=== PATIENT | female | born 1990 | race Two or more races ===

== ENCOUNTER 2024-09-23 08:06 | Outpatient (AMB) | payer OTHER, SELFPAY ==
--- OUTSIDE RECORDS SUMMARY | 2024-09-23 08:15 | XMS_ITS | Data Portability ---
Author Organization [facility], [address] Address [address] [place] [address] Assessment No assessment recorded. Plan of Treatment Reminders Order Date Submit Date Provider Last Modified By Organization Details Last Modified Time Details Appointments None recorded. Lab SARS CoV 2 (COVID-19) Ag, QL, IA, upper respiratory specimen 2022 023 [facility], [address] [place], [address], 3 09:34:08 urinalysis, dipstick 2022 023 [email or web address] [facility], [address] [place], [address], 3 11:21:40 Referral emergency medicine referral 2022 023 delia alarcon [facility] Emergency [facility], [address] [place], [address], 3 11:24:42 Procedures None recorded. Surgeries None recorded. Imaging None recorded. Medication Orders ondansetron 8 mg disintegrat ing tablet 2023 024 [id number], [address], [place], [id number], 4 11:09:52 Allergy Relief (fluticason e) 50 mcg/actuati on nasal spray,suspe nsion 2023 024 [id number], [address], [place], [id number], 4 11:09:51 prednisone 20 mg tablet 2023 024 [facility]85118, [address], [place], [id number], 4 11:09:54 Allergy Relief (fluticason e) 50 mcg/actuati on nasal spray,suspe nsion 2022 023 [facility][id number], [address], [place], [id number], 3 09:34:13 benzonatate 200 mg capsule 2022 024 [facility] #[id number], [address], [place], [id number], 4 10:51:22 Lice Treatment (permethrin ) 1 % topical liquid 2022 023 [facility] #[id number], [address], [place], [id number], 3 10:44:14 Patient TargetsNo targets recorded. Patient Instructions Encounter Date Encounter Id Patient Instructions Last Modified By Organization Details Last Modified Time 10/28/2022 [id number] how to disinfect your house due to head lice [email or web address] Not available 10/28/2022 16:44:14 04/16/2023 [id number] cough: care instructions Not available 04/16/2023 09:34:05 Sinusitis is an infection of the lining of the sinus cavities in your head. Sinusitis often follows a cold. It causes pain and pressure in your head and face. In most cases, sinusitis gets better on its own in 1 to 2 weeks. But some mild symptoms may last for several weeks. Sometimes antibiotics are needed. if you are having problems. It's also a good idea to know your test results and keep a list of the medicines you take. How can you care for yourself at home? Take an wyrc-vkp-dnjxhyd pain medicine. Avoid Ibuprofen, Aleve and Aspirin if . If the doctor prescribed antibiotics, take them as directed. Do not stop taking them just because you feel better. You need to take the full course of antibiotics. Be careful when taking iweg-pec-mgsgmlf cold or influenza (flu) medicines and Tylenol at the same time. Many of these medicines have acetaminophen, which is Tylenol. Read the labels to make sure that you are not taking more than the recommended dose. Too much acetaminophen (Tylenol) can be harmful. Breathe warm, moist air from a steamy shower, a hot bath, or a sink filled with hot water. Avoid cold, dry air. Using a humidifier in your home may help. Follow the directions for cleaning the machine. Use saline (saltwater) nasal washes. This can help keep your nasal passages open and wash out mucus and bacteria. You can buy saline nose drops at a grocery store or drugstore. Or you can make your own at home by adding 1 teaspoon (5 millilitres) of salt and 1 teaspoon (5 millilitres) of baking soda to 2 cups (500 mL) of distilled water. If you make your own, fill a bulb syringe with the solution, insert the tip into your nostril, and squeeze gently. Blow your nose. Put a hot, wet towel or a warm gel pack on your face 3 or 4 times a day for 5 to 10 minutes each time. Try a decongestant nasal spray like oxymetazoline (Drixoral). Do not use it for more than 3 days in a row. Using it for more than 3 days can make your congestion worse. Not available 04/16/2023 09:32:50 If you test positive for COVID-19, stay home for at least 5 days and isolate from others in your home. You are likely most infectious during these first 5 days. Wear a high-quality mask if you must be around others at home and in public. Do not go places where you are unable to wear a mask. For travel guidance, see [facility]? s Travel webpage. Do not travel. Stay home and separate from others as much as possible. Use a separate bathroom, if possible. Take steps to improve ventilation at home, if possible. Don? t share personal household items, like cups, towels, and utensils. Monitor your symptoms. If you have an emergency warning sign (like trouble breathing), seek emergency medical care immediately. If you had symptoms and: Your symptoms are improving You may end isolation after day 5 if: You are fever-free for 24 hours (without the use of fever-reducing medication). Your symptoms are not improving Continue to isolate until: You are fever-free for 24 hours (without the use of fever-reducing medication). Your symptoms are improving. Regardless of when you end isolation Until at least day 11: Avoid being around people who are more likely to get very sick from COVID-19. Remember to wear a high-quality mask when indoors around others at home and in public. Do not go places where you are unable to wear a mask until you are able to discontinue masking (see below). For travel guidance, see [facility]? s Travel webpage. Not available 04/16/2023 09:17:22 06/28/2023 [id number] headache: care instructions Not available 06/28/2023 11:09:45 tension headache : care instructions Not available 06/28/2023 11:09:45 Sinusitis is an infection of the lining of the sinus cavities in your head. Sinusitis often follows a cold. It causes pain and pressure in your head and face. In most cases, sinusitis gets better on its own in 1 to 2 weeks. But some mild symptoms may last for several weeks. Sometimes antibiotics are needed. if you are having problems. It's also a good idea to know your test results and keep a list of the medicines you take. How can you care for yourself at home? Take an axdp-jqa-lsbuxml pain medicine. Avoid Ibuprofen, Aleve and Aspirin if . If the doctor prescribed antibiotics, take them as directed. Do not stop taking them just because you feel better. You need to take the full course of antibiotics. Be careful when taking bwwf-wkh-oqqdpdf cold or influenza (flu) medicines and Tylenol at the same time. Many of these medicines have acetaminophen, which is Tylenol. Read the labels to make sure that you are not taking more than the recommended dose. Too much acetaminophen (Tylenol) can be harmful. Breathe warm, moist air from a steamy shower, a hot bath, or a sink filled with hot water. Avoid cold, dry air. Using a humidifier in your home may help. Follow the directions for cleaning the machine. Use saline (saltwater) nasal washes. This can help keep your nasal passages open and wash out mucus and bacteria. You can buy saline nose drops at a grocery store or drugstore. Or you can make your own at home by adding 1 teaspoon (5 millilitres) of salt and 1 teaspoon (5 millilitres) of baking soda to 2 cups (500 mL) of distilled water. If you make your own, fill a bulb syringe with the solution, insert the tip into your nostril, and squeeze gently. Blow your nose. Put a hot, wet towel or a warm gel pack on your face 3 or 4 times a day for 5 to 10 minutes each time. Try a decongestant nasal spray like oxymetazoline (Drixoral). Do not use it for more than 3 days in a row. Using it for more than 3 days can make your congestion worse. Not available 06/28/2023 11:09:42 Reason for Referral Emergency Medicine Referral for Abdominal pain Abdominal Pain x 4 days with nausea vomiting and dizziness Referring Physician: Wesly Glover, Urgent Care, Encounter Date: 11/06/2022 Results Created Date Observation Date Name Description Value Unit Range Abnormal Flag Note LastModifiedBy Organization Detail LastModifiedTime 11/07/1911/06/2022 urina lysis , dipst ick Unknown Analyte Normal = light yellow Not Available [facility] [address] [place], [address], 11/06/2022 11:01:57 11/07/1911/06/2022 urina lysis , dipst ick Unknown Analyte Yellow Not Available [facility] [address] [place], [address], 11/06/2022 11:01:57 11/07/1911/06/2022 urina lysis , dipst ick Unknown Analyte Normal = clear Not Available [facility] [address] [place], [address], 11/06/2022 11:01:57 11/07/19 23 11/06/2022 urina lysis , dipst ick Unknown Analyte Clear Not Available [id number] [place] [address] [address] [place], [address], 11/06/2022 11:01:57 11/07/19 23 11/06/2022 urina lysis , dipst ick Unknown Analyte Normal = negati ve Not Available [facility] [address] [place], [address], 11/06/2022 11:01:57 11/07/19 23 11/06/2022 urina lysis , dipst ick Unknown Analyte Negati ve Not Available [facility] [address] [place], [address], 11/06/2022 11:01:57 11/07/1911/06/2022 urina lysis , dipst ick Unknown Analyte Normal = Negati ve Not Available [facility] [address] [place], [address], 11/06/2022 11:01:57 11/07/19 23 11/06/2022 urina lysis , dipst ick Unknown Analyte Small Not Available [id number] [place] [address] [address] [place], [address], 11/06/2022 11:01:57 11/07/19 23 11/06/2022 urina lysis , dipst ick Unknown Analyte Normal = Negati ve Not Available [address] [address] [place], [address], 11/06/2022 11:01:57 11/07/19 23 11/06/2022 urina lysis , dipst ick Unknown Analyte Trace Not Available [id number] [place] [address] [address] [place], [address], 11/06/2022 11:01:57 11/07/19 23 11/06/2022 urina lysis , dipst ick Unknown Analyte Normal = 1.010, 1.015, 1.020 Not Available [address] [place], [address], 11/06/2022 11:01:57 11/07/1911/06/2022 urina lysis , dipst ick Unknown Analyte 1.015 Not Available [id number] [place] [address] [address] [place], [address], 11/06/2022 11:01:57 11/07/1911/06/2022 urina lysis , dipst ick Unknown Analyte Normal = Negati ve Not Available [facility] [address] [place], [address], 11/06/2022 11:01:57 11/07/19 23 11/06/2022 urina lysis , dipst ick Unknown Analyte Negati ve Not Available [address] [place], [address], 11/06/2022 11:01:57 11/07/1911/06/2022 urina lysis , dipst ick Unknown Analyte Normal = 6.5, 7.0, 7.5, 8.0 Not Available [address] [place], [address], 11/06/2022 11:01:57 11/07/19 23 11/06/2022 urina lysis , dipst ick Unknown Analyte 8.5 Not Available [address] [address] [place], [address], 11/06/2022 11:01:57 11/07/1911/06/2022 urina lysis , dipst ick Unknown Analyte Normal = Negati ve Not Available [address] [address] [place], [address], 11/06/2022 11:01:57 11/07/19 23 11/06/2022 urina lysis , dipst ick Unknown Analyte 100 mg/dL Not Available [facility] [address] [place], [address], 11/06/2022 11:01:57 11/07/1911/06/2022 urina lysis , dipst ick Unknown Analyte Normal = 0.2, 1.0 Not Available [facility] [address] [place], [address], 11/06/2022 11:01:57 11/07/1911/06/2022 urina lysis , dipst ick Unknown Analyte 4.0 E.U./d L Not Available [facility] [address] [place], [address], 11/06/2022 11:01:57 11/07/1911/06/2022 urina lysis , dipst ick Unknown Analyte Normal = Negati ve Not Available [facility] [facility] [address] [place], [address], 11/06/2022 11:01:57 11/07/1911/06/2022 urina lysis , dipst ick Unknown Analyte Negati ve Not Available [facility] [facility] [address] [place], [address], 11/06/2022 11:01:57 0611/06/2022 urina lysis , dipst ick Unknown Analyte Normal = Negati ve Not Available [address] [address] [place], [address], 11/06/2022 11:01:57 11/07/19 23 11/06/2022 urina lysis , dipst ick Unknown Analyte Trace Not Available _ [facility] [address] [place], [address], 11/06/2022 11:01:57 04/16/20 23 04/16/2023 SARS CoV 2 (COVI D-19) Ag, QL, IA, upper respi rator y speci men Unknown Analyte negati ve Not Available [address] [address] [place], [address], 04/16/2023 09:03:17 Result Notes None recorded. Problems Name Problem SNOMED Code Status Onset Date Resolution Date Notes Provider Name and Address Organization Details Recorded Time Depressive disorder 70470267 Active 2022 ELVIRA DEPINTO null, [place] - [facility] 3 15:57:11 Anxiety 50184182 Active 2022 ELVIRA DEPINTO null, PA - [facility] 3 15:57:15 Neoplasm of meninges 569352117 Active 2022 being seen for tumor ELVIRA DEPINTO null, PA - [facility] 3 15:58:09 Migraine 12805263 Active EMILY MINEO null, PA - [facility] 3 08:45:32 Asthma 714820589 Active EMILY MINEO null, PA - [facility] 3 08:46:50 History of meningioma [id number] 01 Active EMILY MINEO null, PA - [facility] 3 08:47:31 Notes:meningioma Problem Notes None recorded. Procedures Surgical History Date Name Laterality Status Provider Name and Address Organization Details Recorded Time laparoscopic sleeve gastrectomy completed MILLER WRIGHT [place] - [facility] 11/06/2022 10:47:36 ligation of fallopian tube completed MILLER MALIN ADRIANA [facility] 11/06/2022 10:48:53 Imaging Results None recorded. Procedure Notes None recorded. Medical Equipment None Reported. Allergies Allergen ID Allergen Name Allergen Category Reaction Reaction Severity Criticality Documentation Date Start Date Code Code System Note Provider Name and Address Organization Details Recorded [facility] Not available Not available 11/06/2022 54372 4 RxNorm MILLER jalloh [facility] 10:42:34 Medications Name Sig Start Date Stop Date Status Note LastModified by Organization Details LastModified Time d3-1000 25 mcg (1000 ut) tabs active Not Available Not Available Not Available vitamin d-1000 maximum strength 25 mcg (1000 ut) tabs active Not Available Not Available Not Available amoxicillin 500 mg capsule TAKE 1 CAPSULE BY MOUTH 3 (THREE) TIMES A DAY FOR 7 DAYS 06/28 completed Not Available Not Available Not Available azelastine 0.05 % eye drops INSTILL 1 DROP IN EACH EYE two (2) times a day NEEDED FOR ALLERGY active Not Available Not Available No t Available nabumetone 750 mg tablet TAKE 2 TABLETS BY MOUTH ONCE DAILY. TAKE WITH A MEAL active Not Available Not Available No t Available tizanidine 2 mg tablet TAKE 1 TABLET BY MOUTH 3 (THREE) TIMES A DAY active Not Available Not Available No t Available loperamide 2 mg capsule TAKE TWO CAPSULES BY MOUTH THE first TIME; THEN TAKE 1 CAPSULE BY MOUTH AFTER EACH loose stool. not to exceed 8 CAPSULES, OR 16mg, IN 24 HOURS active Not Available Not Available No t Available cetirizine 10 mg tablet TAKE 1 TABLET BY MOUTH ONCE DAILY NEEDED FOR ALLERGY active Not Available Not Available No t Available tizanidine 4 mg tablet TAKE 1 TABLET BY MOUTH 3 (THREE) TIMES A DAY NEEDED active Not Available Not Available No t Available benzonatate 200 mg capsule Take 1 capsule 3 times a day by oral route as needed for 7 days. 06/28 completed Not Available Not Available Not Available sucralfate 1 gram tablet TAKE 1 TABLET BY MOUTH two (2) times a day NEEDED FOR upset stomach active Not Available Not Available No t Available ondansetron HCl 4 mg tablet TAKE 1 TABLET BY MOUTH EVERY 8 HOURS NEEDED FOR VOMITING active Not Available Not Available No t Available prednisone 20 mg tablet TAKE 2 TABLETS BY MOUTH EVERY DAY IN THE MORNING FOR 3 DAYS active Not Available Not Available No t Available topiramate 25 mg tablet TAKE 1 TABLET BY MOUTH AT BEDTIME FOR 7 DAYS; 1 TAB two (2) times a day FOR 7 DAYS; 1 TAB IN THE MORNING AND 2 TABLETS AT BEDTIME FOR 7 DAYS; 2 TABLETS two (2) times a day FOR 7 DAYS; 2 TABLETS IN THE MORNING AND 3 TABLETS AT BEDTIME FOR 7 DAYS; 3 TABLETS two (2) times a day FOR 7 DAYS; 3 TABLETS IN THE MORNING AND 4 TABLETS AT BEDTIME FOR 7 DAYS; THEN 4 TABLETS two (2) times a day 06/28 completed Not Available Not Available Not Available acetaminoph en 300 mg-codeine 15 mg tablet TAKE 1 TABLET BY MOUTH EVERY 6 HOURS NEEDED FOR PAIN chest AND FOR COUGH active Not Available Not Available No t Available Sudogest 30 mg tablet TAKE 2 TABLETS BY MOUTH EVERY 6 HOURS active Not Available Not Available No t Available ondansetron 8 mg disintegrat ing tablet DISSOLVE 1 TABLET ON THE TONGUE TWICE DAILY FOR 3 DAYS NEEDED active Not Available Not Available No t Available zolmitripta n 2.5 mg tablet TAKE 1 TABLET BY MOUTH ONCE NEEDED for migraine. MAY REPEAT ONCE EVERY 2 HOUR NEEDED . not to exceed 4 TABLETS ONCE DAILY active Not Available Not Available No t Available tolterodine 2 mg tablet TAKE 1 TABLET BY MOUTH two (2) times a day NEEDED FOR incontine nce active Not Available Not Available No t Available magnesium oxide 400 mg (241.3 mg magnesium) tablet TAKE 1 TABLET BY MOUTH ONCE DAILY active Not Available Not Available No t Available dexamethaso ne 1 mg tablet TAKE 1 TABLET BY MOUTH ONCE. TAKE AFTER 11pm DAY BEFORE lab study active Not Available Not Available No t Available Proctozone- HC 2.5 % topical cream perineal applicator APPLY RECTALLY two (2) times a day active Not Available Not Available No t Available pantoprazol e 40 mg tablet,keith yed release TAKE 1 TABLET BY MOUTH ONCE DAILY 30 MINUTES BEFORE BREAKFAST active Not Available Not Available No t Available diphenhydra mine 25 mg capsule TAKE 1 TO 2 CAPSULES BY MOUTH EVERY 6 HOURS NEEDED FOR ALLERGY rash symptoms active Not Available Not Available No t Available nitrofurant oin macrocrysta l 100 mg capsule TAKE 1 CAPSULE BY MOUTH TWICE DAILY FOR 5 DAYS 06/28 completed Not Available Not Available Not Available diclofenac sodium 75 mg tablet,keith yed release TAKE 1 TABLET BY MOUTH 3 (THREE) TIMES A DAY NEEDED FOR PAIN BACK. TAKE WITH A MEAL active Not Available Not Available No t Available zolpidem 5 mg tablet TAKE 1 TABLET BY MOUTH ON THE NIGHT OF SLEEP study AFTER arrival TO SLEEP lab. Arrange FOR ride HOME NEXT MORNING 11/06 completed Not Available Not Available Not Available gabapentin 100 mg capsule TAKE TWO CAPSULES BY MOUTH ONCE DAILY AT BEDTIME FOR neurvo dolor active Not Available Not Available No t Available polyethylen e glycol 3350 17 gram/dose oral powder DISSOLVE 17gm IN WATER OR juice AND DRINK ONCE DAILY NEEDED FOR CONSTIPAT ION 11/06 completed Not Available Not Available Not Available methylpredn isolone 4 mg tablets in a dose pack TAKE DIRECTED per package labeling 11/06 completed Not Available Not Available Not Available paroxetine 40 mg tablet TAKE 1 TABLET BY MOUTH ONCE DAILY active Not Available Not Available No t Available ondansetron 4 mg disintegrat ing tablet PLACE 1 TABLETS UNDER THE TONGUE TO DISSOLVE 3 (THREE) TIMES A DAY FOR NAUSEA active Not Available Not Available No t Available loratadine 10 mg tablet TAKE 1 TABLET BY MOUTH ONCE DAILY NEEDED FOR ALLERGY active Not Available Not Available No t Available amoxicillin 875 mg-potassiu m clavulanate 125 mg tablet TAKE 1 TABLET BY MOUTH EVERY TWELVE HOURS FOR 10 DAYS 11/06 completed Not Available Not Available Not Available nabumetone 500 mg tablet TAKE 1 TABLET BY MOUTH two (2) times a day NEEDED FOR PAIN. TAKE WITH A MEAL active Not Available Not Available No t Available Ventolin HFA 90 mcg/actuati on aerosol inhaler INHALE 2 PUFF BY MOUTH EVERY 6 HOURS NEEDED FOR SHORTNESS OF BREATH OR FOR WHEEZING active Not Available Not Available No t Available verapamil ER 120 mg 24 hr capsule,ext ended release TAKE 1 CAPSULE BY MOUTH ONCE DAILY 11/06 completed Not Available Not Available Not Available buspirone 15 mg tablet TAKE 1/2 TO 1 TABLETS BY MOUTH two (2) times a day NEEDED ANXIETY active Not Available Not Available No t Available escitalopra m 10 mg tablet TAKE 1 TABLET BY MOUTH ONCE DAILY active Not Available Not Available No t Available escitalopra m 5 mg tablet Take 1/2 tablet by mouth daily for 7 days, THEN TAKE 1 TABLET ONCE DAILY active Not Available Not Available No t Available topiramate 50 mg tablet TAKE 1 TABLET BY MOUTH two (2) times a day active Not Available Not Available No t Available gabapentin active Not Available Not Av ailable Not Available cholecalcif howie (vitamin D3) 25 mcg (1,000 unit) tablet TAKE 1 TABLET BY MOUTH ONCE DAILY active Not Available Not Available No t Available Myrbetriq 50 mg tablet,exte nded release TAKE 1 TABLET BY MOUTH ONCE DAILY active Not Available Not Available No t Available Ferate 240 mg (27 mg iron) tablet TAKE 1 TABLET BY MOUTH ONCE DAILY WITH JUICE active Not Available Not Available No t Available Allergy Relief (fluticason e) 50 mcg/actuati on nasal spray,suspe nsion Vina 1 spray every day by intranasa l route as directed for 90 days. 2023 active Not Available Not Available Not Avai lable Vitals Date Recorded Oxygen saturation Oxygen saturation in Arterial blood by Pulse oximetry Pain severity - 0-10 verbal numeric rating [Score] - Reported Heart rate Respiratory rate Body temperature Systolic blood pressure Diastolic blood pressure Provider Name and Address Organization Details Last Updated DateTime 3 98 % 98 % 0 66 /min 18 /min 98 [degF] 116 mm[Hg] 68 mm[Hg] ELVIRA BOSTON [place] - [facility] 3 15:56:33 Date Recorded Body height Body mass index (BMI) Body weight Oxygen saturation Oxygen saturation in Arterial blood by Pulse oximetry Heart rate Respiratory rate Body temperature Systolic blood pressure Diastolic blood pressure Provider Name and Address Organization Details Last Updated DateTime 3 162.56 cm 45.1 kg/m2 215075. 79 g 100 % 100 % 70 /min 20 /min 97.9 [degF] 110 mm[Hg] 73 mm[Hg] MILLER WRIGHT [facility] 3 10:50:34 Date Recorded Body height Body mass index (BMI) Body weight Oxygen saturation Oxygen saturation in Arterial blood by Pulse oximetry Heart rate Respiratory rate Body temperature Systolic blood pressure Diastolic blood pressure Provider Name and Address Organization Details Last Updated DateTime 3 162.56 cm 43.8 kg/m2 291419. 05 g 98 % 98 % 83 /min 18 /min 98.9 [degF] 112 mm[Hg] 60 mm[Hg] EMILY HUSAINWendy PA - [facility] 3 08:50:13 Date Recorded Body height Body mass index (BMI) Body weight Body temperature Oxygen saturation Oxygen saturation in Arterial blood by Pulse oximetry Heart rate Respiratory rate Systolic blood pressure Diastolic blood pressure Provider Name and Address Organization Details Last Updated DateTime 4 162.56 cm 45.7 kg/m2 709409. 57 g 98.4 [degF] 98 % 98 % 83 /min 18 /min 121 mm[Hg] 84 mm[Hg] Richa Cyr PA - [facility] 4 10:54:38 Social History Question Answer Notes LastModified by Organizat ion Details LastModified Time Tobacco Smoking Status Current Some Day Smoker Richa Cyr [facility] [place] - [facility] 06/28/2023 10:53:08 What Is Your Level Of Alcohol Consumption? None Information not available 10/28/2022 Have You Had A Flu Shot This Season? No [email or web address] Information not available 06/28/2023 What Was The Date Of Your Most Recent Tobacco Screening? 06/28/2023 [email or web address] Information not available 06/28/2023 Do You Use Any Illicit Or Recreational Drugs? No Information not available 10/28/2022 Have You Recently Traveled Abroad? No Information not available 10/28/2022 Do You Or Have You Ever Used Any Other Forms Of Tobacco Or Nicotine? No Information not available 10/28/2022 Sex: Unknown Functional Status None recorded. Mental Status None recorded. Family History Relationship Description Onset Age of this Age Resolved Age Notes LastModified by Organization Details LastModified Time Father No current problems or disability Not available 10/28 15:58:18 Mother No current problems or disability Not available 10/28 15:58:18 Medical History No medical history recorded. Gynecological History Statement/Question Response Date of LMP 06/18/2023 Is there any chance of ? No LMP Definite Obstetrics History GPAL:G 0 P 0 0 0 0 Immunizations Vaccine Type Date Status Note Provider Nam e and Address Organization Details Recorded Time Influenza, split virus, trivalent, preservative 3 completed PILLO Nunez - [facility] 11/06/2022 10:42:16 Past Encounters Encounter ID Performer Location Encounter Start Date Encounter Closed Date Diagnosis/Indication Diagnosis SNOMED-CT Code Diagnosis ICD10 Code [id number] [facility] [address] [place] [address] 02/18/2020 11:52:30 02/18/2020 13:16:13 [id number] [facility] [address] [place] [address] 09/16/2020 15:15:07 09/16/2020 16:48:30 [id number] David David DO [facility] [address] [place] [address] 10/28/2022 14:08:20 10/28/2022 16:50:14 Pediculosis capitis 48696192 B85.0 discussed lice treatment in detailNKDA comb out nits after shampooing repeat in 7-10 dwash all clothes//b edding in longest hottest cyclePatie nt advised to follow up as needed for worsening symptoms or no improvemen t. [id number] Wesly Golver [facility] [address] [place] [address] 11/06/2022 10:29:18 11/06/2022 11:24:42 Abdominal pain 72691920 R10.9 Generalize d abdominal pain with dizziness x 4 days, loss of appetite, nausea and vomitingUr inalysis with ketones, proteinHis tory Gastric Bypass.Willow el sounds present but no BM x 4 daysNeeds ER evaluation to rule out Pancreatit is, Appendicit is, other intrabdomi nal pathologyP atient expresses understand ing and will have family member transport to [facility] [id number] [facility] [address] [place] [address] 04/16/2023 08:31:46 04/16/2023 09:39:13 Exposure to SARS-CoV-2 896517290 Z20.822 Acute sinusitis [id number] J01.90 [id number] [place] [address]_[facility] [address] [facility] JULIET serrano [address] 06/28/2023 10:39:31 06/28/2023 11:11:54 Generalized headache [id number] R51.9 Increase fluids Go to the Emergency Room immediatel y if your symptoms worsen or you develop new symptoms that concern you. We recommend that you follow up with your primary care physician within one week. Failure to follow up as recommende d may result in significan t adverse health consequenc es. Go home and take Benadryl as directed Go home and go to a dark, quiet place and rest. If you wake with persisting symptoms, go to ER for further evaluation and treatment Avoid loud noises, prolonged TV, computer use Keep a headache diary Follow up with a Neurologis t if you have no significan t improvemen t this week ? Acute sinusitis 15791317 J01.90 Sinusitis is an infection of the lining of the sinus cavities in your head. Sinusitis often follows a cold. It causes pain and pressure in your head and face. In most cases, sinusitis gets better on its own in 1 to 2 weeks. But some mild symptoms may last for several weeks. Sometimes antibiotic s are needed. if you are having problems. It's also a good idea to know your test results and keep a list of the medicines you take. How can you care for yourself at home? Take an over-the-c ounter pain medicine. Avoid Ibuprofen, Aleve and Aspirin if . If the doctor prescribed antibiotic s, take them as directed. Do not stop taking them just because you feel better. You need to take the full course of antibiotic s. Be careful when taking over-the-c ounter cold or influenza (flu) medicines and Tylenol at the same time. Many of these medicines have acetaminop hen, which is Tylenol. Read the labels to make sure that you are not taking more than the recommende d dose. Too much acetaminop hen (Tylenol) can be harmful. Breathe warm, moist air from a steamy shower, a hot bath, or a sink filled with hot water. Avoid cold, dry air. Using a humidifier in your home may help. Follow the directions for cleaning the machine. Use saline (saltwater ) nasal washes. This can help keep your nasal passages open and wash out mucus and bacteria. You can buy saline nose drops at a grocery store or drugstore. Or you can make your own at home by adding 1 teaspoon (5 millilitre s) of salt and 1 teaspoon (5 millilitre s) of baking soda to 2 cups (500 mL) of distilled water. If you make your own, fill a bulb syringe with the solution, insert the tip into your nostril, and squeeze gently. Blow your nose. Put a hot, wet towel or a warm gel pack on your face 3 or 4 times a day for 5 to 10 minutes each time. Try a decongesta nt nasal spray like oxymetazol ine (Drixoral) . Do not use it for more than 3 days in a row. Using it for more than 3 days can make your congestion worse. Nausea and vomiting [id number] R11.2 Try small amounts of clear liquids frequently .If vomiting occurs, wait 30-60 minutes before trying clear liquids again. Once you are able to tolerate clear liquids for at least 6 hours without vomiting, you can advance to a soft diet consisting of foods such as bananas, rice, applesauce , toast, crackers, and other foods rich in carbohydra michael and low on fats and spices.If the diet is tolerated for 12-24 hours, you can slowly add other foods to your diet.If vomiting occurs, you should go back to clear liquids only and work your way back to a normal diet as outlined above. If much worse, you should seek treatment immediatel y. Health Concerns Section Related Observation LastModified by Organization Detai ls LastModified Time None Recorded Concern Status LastModified by Organization Details LastModified Time None Recorded Advance Directives Directive None Recorded Payers Encounter Date Sequence Insurance Name Policy Number Policy Bowling Covered Member ID Bowling Member ID Guarantor Name 09/16/2020 1 [facility] (MEDICAID HMO) [id number] [facility] [place] [id number] [facility] 10/28/[address] [facility] [employer] (MEDICAID HMO) [id number] Neheimah Malave [id number] Nehemiah Malave 11/06/2022 1 [facility] (MEDICAID HMO) [id number] Nehemiah Malave [id number] Nehemiah Malave 04/16/2023 1 [facility] (MEDICAID HMO) [id number] Nehemiah Malave [id number] Nehemiah Malave 06/28/2023 1 [facility] [id number] Nehemiah Malave [id number] Nehemiah Malave Notes Date Note Type Note Provider Name and Address Organization Details Recorded Time 3 text/html 32 yo female c/w lice4 yo daughter exposed to lice in her classroommother found live bugs and nitsused vinegar yesterday+ itchyno rashn f/c/n/vNKDA has 2 sisters - they sleep together David David DO [address] [place], [address], [place] [facility] 10/28/2022 16:44:32 3 text/html Abdominal PainReported bypatient.Location:general ized Quality:dull;pain;bloating ;fullness;tender Severity:pain level 6/10 Onset/Timing:worse Context:history of kidney stones Associated Symptoms:no fever;nausea;vomiting Other:denies possible Wesly Glover MD [address] [place], [address], [place] [facility] 11/13/2022 09:10:55 3 text/html CoughReported bypatient.source of patient informationInformation obtained from patient; Patient arrived at Urgent Care ambulatory; learning styles: auditory Quality:harsh;dry; intermittent; symptoms worse with lying down Severity:worsening;pain with cough; moderate Duration:constant; symptoms lasting over 2 weeks Timing:worsening; gradual Context:Patient denies vaping; non-smoker;history of bronchitis Modifying Factors:at night Associated Symptoms:no fever; no chills; no chest pain; no heartburn; no nausea; no vomiting; no edema; no agitation; no wheezing; no post nasal drip;hurts to breath Isaac Marley NP [address] [facility] [place], [address], [place] - [facility] 04/16/2023 09:35:06 text/html Headache UCReported bypatient.source of patient informationpatient; Patient arrived at Urgent Care ambulatory; Long standing history of headaches and weakness had done gastric sleeve and remain nauseated often per patient working with her PCP with her weight loss management. presented with some headache and nasal congestion. denies any fever or fever with chills, denies any SOB or respiratory distress. Location:frontal; band around head Quality:not the worst headache ever; similar to previous headaches;aching;dull;cont inuous Severity:moderate; pain level 5/10 Duration:intermittent Onset/Timing:better; abrupt onset; occur upon awakening Context:not related to trauma; occurs with exertion; triggered by life events; stress at work Aggravating factors:nothing makes it worse Alleviating factors:nothing gives relief Associated Symptoms:no vomiting; no sensitivity to light; no confusion; no slurred speech; no preceeding aura; no double vision; normal feeling/sensation; no motor paralysis; no sleep disturbances; no nosebleeds; no hoarseness; no sore throat; no hearing loss; no tearing/watery eyes;nausea;dizziness;cold symptoms Isaac Marley NP [address] [place], [address], [place] - [facility] 06/28/2023 11:10:11 OBGyn Episode No OBEpisode recorded.
--- NOTE | 2024-09-23 11:59 | MHC.OFFVISWM ---
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 BMI 43.2 Allergies ziprasidone [From Geodon] Allergy (Mild, Verified 09/23/24 12:00) Hives latex Allergy (Mild, Uncoded 09/23/24 12:00) Hives Medication List - Last Reconciled 09/23/24 by Santy Sun MD albuterol sulfate 90 mcg/actuation 2 puffs inhalation Q6H PRN atogepant (Qulipta) 60 mg PO DAILY azelastine 0.05% drps ophthalmic (eye) buspirone 15 mg PO BID cetirizine (Allergy Relief (cetirizine)) 10 mg PO DAILY cholecalciferol (vitamin D3) (Ddrops) PO docusate sodium 100 mg PO BID famotidine 20 mg PO BID famotidine (Heartburn Relief (famotidine)) mg PO ferrous gluconate (Ferate) 240 mg PO DAILY fluticasone propionate 50 mcg/actuation sprays intranasal magnesium oxide 400 mg PO DAILY ondansetron HCl 4 mg PO Q8H PRN sennosides (senna) 17.2 mg PO DAILY sucralfate 1 g PO QID tolterodine ER 4 mg PO DAILY vitamin B complex 1 tab PO DAILY HPI 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 Also c/o nausea and vomiting Wakes up: 6.30am, Sleeps: 1am Breakfast: skips Lunch: 12pm (toast, sandwich) Dinner: 5.30pm (chicken wraps, salad) Snacks: 10am (chips), 4pm (chips) Exercise: has home treadmill Beverages: Coffee: (1 cup/d with creamer, caramel), tea: none, soda: none, juice: Crystal light, ETOH: none PFSH Medical History (Updated 09/23/24 @ 12:38 by Santy Sun MD) Migraines Stress incontinence Bipolar 1 disorder PTSD (post-traumatic stress disorder) Anxiety Depression GERD (gastroesophageal reflux disease) Obstructive sleep apnea on CPAP Asthma Morbid obesity Surgical History (Updated 09/11/24 @ 09:21 by La Tabares CMA) Hx of carpal tunnel repair History of emergency section Hx of cholecystectomy S/P gastric sleeve procedure Family History (Updated 09/11/24 @ 09:23 by La Tabares CMA) Mother Lupus (systemic lupus erythematosus) Diabetes Father No problems noted. Daughter No problems noted. Daughter No problems noted. Daughter No problems noted. Social History (Updated 09/11/24 @ 09:23 by La Tabares CMA) Alcohol intake: current Alcohol intake frequency: holidays/special occasions only Patient Tobacco Use Status: Never used Tobacco Telehealth Telehealth Telehealth Platform: Telephone Location of provider rendering services: practice address Location of patient: address on file Patient Identification confirmed using: Name, : Yes Telehealth method: voice only Patient verbally consented to treatment: Yes Patient verbally consented to billing insurance company: Yes Patient informed of any privacy concerns related to visit: Yes Minutes spent on Phone/Video with Pt.: 41 Assessment & Plan Assessment & Plan (1) GERD (gastroesophageal reflux disease): Code(s): K21.9 - Gastro-esophageal reflux disease without esophagitis Category: Medical Qualifiers: Esophagitis presence: esophagitis presence not specified Qualified Code(s): K21.9 - Gastro-esophageal reflux disease without esophagitis Plan: 1. To be scheduled for EGD to assess the stomach's anatomy due to persistent GERD, nausea and vomiting after the sleeve gastrectomy. The possibility of biopsies was discussed. Patient needs to avoid use of NSAIDs and aspirin for 1 week prior to EGD. You must be on liquids only the day before your endoscopy. Risks of perforation and bleeding was discussed with the patient. This will be an outpatient procedure with IV sedation. 2. She needs to send me the protein shakes and bars that she uses so I can create a meal plan 3. Please buy the body composition scale we discussed and send me weight measurements as soon as possible and then once a week. 4. Start treadmill with an incline of 2.0 and speed of 3.0. Increase incline by 1 every 3 min to a max incline of 8.0, stay 3min at 8.0 and then return to 2.0 and repeat same steps until calorie goal is met. Goal is to burn 2000 calories per week on exercise, which means either 300 calories daily, or 400 calories 5 days per week, or 500 calories 4 days per week, or 650 calories 3 days per week.
[2024-09-23 12:36] VITALS: BMI 43.2
== END 2024-09-23 12:42 | disposition home or self-care (01) ==
LOC: HO.HBS 08:06
PROVIDERS: PCP Family Medicine; Visit Provider Surgery
DX: K21.9 Gastro-esophageal reflux disease without esophagitis (principal)
CPT/HCPCS: 99203

== ENCOUNTER 2024-10-09 08:56 | Day surgery (SDC) | payer OTHER, SELFPAY ==
[2024-10-07 12:13] VITALS: BMI 43.1
--- NOTE | 2024-10-07 14:40 | P.CONAN_ITS ---
Documented by User: Wandy Duggan NP 10/07/24 15:11 HPI - Anesthesia Eval Consult details Narrative: 34yo F for Upper Endoscopy BMI 43 Follows [facility] neuro for chronic headaches/calcified meningioma PMFSH Active Problems Active Problems: All Active Problems Migraines (Acute) Stress incontinence (Acute) Bipolar 1 disorder (Acute) PTSD (post-traumatic stress disorder) (Acute) Anxiety (Acute) Depression (Acute) GERD (gastroesophageal reflux disease) (Acute) Obstructive sleep apnea on CPAP (Acute) Asthma (Acute) Morbid obesity (Acute) Past Medical History Medical History History of irregular heartbeat Fibromyalgia History of panic attacks RLS (restless legs syndrome) Lactose intolerance IBS (irritable bowel syndrome) Hx of meningioma of the brain SANJAY (obstructive sleep apnea) Fatty liver PONV (postoperative nausea and vomiting) Hx of renal calculi Migraines Stress incontinence Bipolar 1 disorder PTSD (post-traumatic stress disorder) Anxiety Depression GERD (gastroesophageal reflux disease) Obstructive sleep apnea on CPAP Asthma Morbid obesity Family History Family History Mother Lupus (systemic lupus erythematosus) Diabetes Father No problems noted. Daughter No problems noted. Daughter No problems noted. Daughter No problems noted. 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 If so, by whom?: No Are you DNR?: No Advance Directives: No (has one will bring dos) Advance Directives Information Provided: Yes Advance Directives on File: No Patient : No FDLMP: 10/07/2024 : No Poor oral hygiene: No Meds Allergies Allergy/AdvReac Type Severity Reaction Status Date / Time ziprasidone [From Cristhiandon] Allergy Mild Hives Verified 09/23/24 12:00 lactose Allergy Gastrointestinal Verified 10/07/24 12:23 Upset latex Allergy Mild Hives Uncoded 09/23/24 12:00 Home Medications ?Medication ?Instructions ?Recorded ?Confirmed ?Last Taken ?Type atogepant 60 mg tablet (Qulipta) 60 mg PO DAILY 09/11/24 10/07/24 Unknown History azelastine 0.05 % eye drops 1 drp ophthalmic (eye) DAILY 09/11/24 10/07/24 Unknown History buspirone 15 mg tablet 15 mg PO BID 09/11/24 10/07/24 Unknown History cetirizine 10 mg tablet (Allergy 10 mg PO DAILY 09/11/24 10/07/24 Unknown History Relief (cetirizine)) cholecalciferol (vitamin D3) 25 25 mcg PO DAILY 09/11/24 10/07/24 Unknown History mcg/drop (1,000 unit/drop) oral drops (Ddrops) docusate sodium 100 mg capsule 100 mg PO BID 09/11/24 10/07/24 Unknown History famotidine 10 mg tablet (Heartburn mg PO 09/11/24 09/23/24 Unknown History Relief (famotidine)) famotidine 20 mg tablet 20 mg PO BID 09/11/24 10/07/24 Unknown History ferrous gluconate 240 mg (27 mg 240 mg PO DAILY 09/11/24 10/07/24 Unknown History iron) tablet (Ferate) fluticasone propionate 50 1 spray intranasal DAILY 09/11/24 10/07/24 Unknown History mcg/actuation nasal spray,suspension magnesium oxide 400 mg (241.3 mg 400 mg PO DAILY 09/11/24 10/07/24 Unknown History magnesium) tablet ondansetron HCl 4 mg tablet 4 mg PO Q8H PRN Nausea And Vomiting 09/11/24 10/07/24 Unknown History sennosides 8.6 mg tablet (senna) 17.2 mg PO DAILY PRN Constipation 09/11/24 10/07/24 Unknown History sucralfate 1 gram tablet 1 g PO QID 09/11/24 10/07/24 Unknown History tolterodine 4 mg capsule,extended 4 mg PO DAILY 09/11/24 10/07/24 Unknown History release 24 hr vitamin B complex 1 tab PO DAILY 09/11/24 10/07/24 Unknown History albuterol sulfate 90 mcg/actuation 2 puff inhalation Q6H PRN 09/23/24 10/07/24 Unknown History aerosol inhaler Shortness Of Breath Or Wheezing duloxetine 20 mg capsule,delayed 20 mg PO BID 10/07/24 10/07/24 Unknown History release Exam Height,Weight and Vital Signs: Height 5 ft 4 in Weight 113.852 kg Narrative Narrative: MRI brain 2022 IMPRESSION: Stable likely heavily calcified meningioma in the left parietal convexity. No significant mass effect upon the adjacent brain parenchyma or abnormal signal within the adjacent brain. No further follow-up is needed. Otherwise, unremarkable MRI brain with and without contrast. Assessment and Plan Assessment Anesthesia Assessment: Chart Reviewed Documented by User: Tara Michel MD 10/09/24 09:58 PMFSH Past Medical History Medical History History of irregular heartbeat Fibromyalgia History of panic attacks RLS (restless legs syndrome) Lactose intolerance IBS (irritable bowel syndrome) Hx of meningioma of the brain SANJAY (obstructive sleep apnea) Fatty liver PONV (postoperative nausea and vomiting) Hx of renal calculi Migraines Stress incontinence Bipolar 1 disorder PTSD (post-traumatic stress disorder) Anxiety Depression GERD (gastroesophageal reflux disease) Obstructive sleep apnea on CPAP Asthma Morbid obesity Family History Family History Mother Lupus (systemic lupus erythematosus) Diabetes Father No problems noted. Daughter No problems noted. Daughter No problems noted. Daughter No problems noted. 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 If so, by whom?: No Are you DNR?: No Advance Directives: No (has one will bring dos) Advance Directives Information Provided: Yes Advance Directives on File: No Patient : No FDLMP: 10/07/2024 : No Poor oral hygiene: No Meds Allergies Allergy/AdvReac Type Severity Reaction Status Date / Time ziprasidone [From Geodon] Allergy Mild Hives Verified 09/23/24 12:00 lactose Allergy Gastrointestinal Verified 10/07/24 12:23 Upset latex Allergy Mild Hives Uncoded 09/23/24 12:00 Home Medications ?Medication ?Instructions ?Recorded ?Confirmed ?Last Taken ?Type atogepant 60 mg tablet (Qulipta) 60 mg PO DAILY 09/11/24 10/07/24 Unknown History azelastine 0.05 % eye drops 1 drp ophthalmic (eye) DAILY 09/11/24 10/07/24 Unknown History buspirone 15 mg tablet 15 mg PO BID 09/11/24 10/07/24 Unknown History cetirizine 10 mg tablet (Allergy 10 mg PO DAILY 09/11/24 10/07/24 Unknown History Relief (cetirizine)) cholecalciferol (vitamin D3) 25 25 mcg PO DAILY 09/11/24 10/07/24 Unknown History mcg/drop (1,000 unit/drop) oral drops (Ddrops) docusate sodium 100 mg capsule 100 mg PO BID 09/11/24 10/07/24 Unknown History famotidine 10 mg tablet (Heartburn mg PO 09/11/24 09/23/24 Unknown History Relief (famotidine)) famotidine 20 mg tablet 20 mg PO BID 09/11/24 10/07/24 Unknown History ferrous gluconate 240 mg (27 mg 240 mg PO DAILY 09/11/24 10/07/24 Unknown History iron) tablet (Ferate) fluticasone propionate 50 1 spray intranasal DAILY 09/11/24 10/07/24 Unknown History mcg/actuation nasal spray,suspension magnesium oxide 400 mg (241.3 mg 400 mg PO DAILY 09/11/24 10/07/24 Unknown History magnesium) tablet ondansetron HCl 4 mg tablet 4 mg PO Q8H PRN Nausea And Vomiting 09/11/24 10/07/24 Unknown History sennosides 8.6 mg tablet (senna) 17.2 mg PO DAILY PRN Constipation 09/11/24 10/07/24 Unknown History sucralfate 1 gram tablet 1 g PO QID 09/11/24 10/07/24 Unknown History tolterodine 4 mg capsule,extended 4 mg PO DAILY 09/11/24 10/07/24 Unknown History release 24 hr vitamin B complex 1 tab PO DAILY 09/11/24 10/07/24 Unknown History albuterol sulfate 90 mcg/actuation 2 puff inhalation Q6H PRN 09/23/24 10/07/24 Unknown History aerosol inhaler Shortness Of Breath Or Wheezing duloxetine 20 mg capsule,delayed 20 mg PO BID 10/07/24 10/07/24 Unknown History release Exam Airway Mallampati Class: III TM Dist: >3cm Neck ROM: Full Loose/Missing/Broken Teeth: No Heart: RRR Lungs: CTA Assessment and Plan Assessment Anesthesia Assessment: Anesthesia Plan Discussed Final Anesthetic Review History of Problems with Anesthesia: No NPO: Yes ASA Class: III Final Preanesthetic Review: Meds/Allgs Chart Reviewed, Consent Obtained/Reviewed and Anes Risks/Benef Reviewed Patient Risk: Intermediate Procedure Risk: Intermediate Anesthetic Plan Anesthetic Plan: MAC: Disposition: Standard PACU
[2024-10-09] VITALS (7 sets, daily range): BP systolic 120–138; BP diastolic 66–84; PULSE 74–92; RESP 16–18; TEMP 36.4–36.6; O2SAT 95–99
[2024-10-09] MEDS: Lactated Ringers 1,000 ML 80 ML IVCONT (09:22)
--- NOTE | 2024-10-09 09:57 | P.HPSUR_ITS ---
Pre-Procedural Eval Section A - 24 Hr Update-Section A only Date of Service: 10/09/24 The patient is an INPATIENT: No The patient has been examined within 24 hours of the surgical procedure. The History & Physical has been completed within 30 days and I have reviewed it.: Yes Section B - Complete if H&P > 30 days Chief Complaint: Morbid (severe) obesity due to excess calories Details of Present Illness: GERD, s/p sleeve gastrectomy Relevant Family History (Specify if Yes): No Relevant Social History: None Present Medications: None Medical History: No relevant PMH History of Previous Operations: Relevant previous surgery/procedure and date(s) (Laparoscopic sleeve gastrectomy) Allergies: Allergies Allergy/AdvReac Type Severity Reaction Status Date / Time ziprasidone [From Geodon] Allergy Mild Hives Verified 09/23/24 12:00 lactose Allergy Gastrointestinal Verified 10/07/24 12:23 Upset latex Allergy Mild Hives Uncoded 09/23/24 12:00 Review of Systems Sugical H&P ROS: Negative: Constitution, Cardiovascular, Respiratory, Neurological, Psychiatric, Hem-Onc, Allergic/Immunologic, Gastrointestinal, Genitourinary, Musculoskeletal, Integumentary, Endocrine and Eyes/Ears/ Nose/Throat Exam Surgical H&P Exam: Normal: HEENT, Normal: Heart, Normal: Lungs, Normal: Extremities, Normal: Abdomen, Normal: Skin and Normal: Neurological Plan Diagnosis/Plan: Unchanged (EGD to assess etiology of GERD in relation to the anatomy of the sleeve gastrectomy. Risks of bleeding and perforation were discussed with the patient and she is in agreement with the plan.) I have reviewed the history and physical and performed a pertinent physical examination on my patient. No changes have occurred unless specified. Time Spent With Patient Time: Total time managing care of this patient today ____ minutes.
--- NOTE | 2024-10-09 10:37 | PM.OP ---
Brief Operative Note Date of Service: 10/09/24 Pre-op diagnosis: GERD Post-op diagnosis: same Procedure: PROCEDURE DATE: 10/09/2024 PREOPERATIVE DIAGNOSIS: GERD, s/p sleeve gastrectomy POSTOPERATIVE DIAGNOSIS: ?Same as above. 1) small hiatal hernia, 2) distal gastritis, 3) duodenitis, 4) moderate redundancy of proximal sleeve PROCEDURE: Pjyzwbwm-ukfwji-iauxbggymplo with biopsies Surgeon: ?Cesar Sun M.D.. Ph.D. [employer]: None ? Anesthesia: IV sedation Estimated blood loss: ?Minimal FINDINGS AND PROCEDURE: ? OPERATIVE INDICATIONS: ?The patient is a 34 year old female known to me who underwent a laparoscopic sleeve gastrectomy by Dr. Monteiro at [facility]. The patient had poor weight loss so far and has severe GERD despite use of H2 blockers. Based on this information I recommended an upper endoscopy to evaluate the patient's symptoms in relation to the sleeve gastrectomy. Risks and complications of the surgery were discussed with the patient in advance particularly the possibility of perforation or bleeding that may require surgical intervention. The patient understood the risks and was in agreement with the plan. ? PROCEDURE: After informed consent was obtained by the patient, the patient was ?transferred to the Operating Room and was placed in the supine position.? After successful induction of IV sedation, a mouth block was inserted and the patient was placed in the left lateral decubitus position. An upper endoscopy was performed next, the oropharynx and esophagus appeared within the normal limits. There was a small 2cm diaphragmatic hernia. The z-line was smooth. Two biopsies were obtained from the distal esophagus 2-3 cm proximal to the GE junction and two additional biopsies from the GE junction. The sleeve was entered. There was redundancy of the proximal sleeve near the GEJ of moderate degree. The distal sleeve was significantly smaller in diameter in relation to the proximal sleeve.. There was gastritis at distal antrum. There was no stricture or ulcer. Biopsies were obtained from the proximal sleeve as well as the distal antrum. Retroflexion was not performed due to the sleeve. No significant bleeding was noted from any of the biopsy sites. The scope was then advanced into the duodenum. There was erythema at eh first two portions. A biopsy was performed. At that point the duodenum ?and the sleeve were decompressed and the scope was withdrawn from the patient's mouth. The patient extubated and was transferred in stable condition to the Recovery Room for further care. I was present and performed all steps of the procedure. There were no residents to assist with this case. Cesar Sun M.D., Ph.D. Surgeon: Santy Sun MD Anesthesia: MAC Was an [employer] used for this Procedure?: No Estimated blood loss (mL): 0 IV fluids (mL): 400 Urine output (mL): 0 (No [place] to record output) Pathology: other (1) antrum x1, 2) proximal sleeve/gastric fundus x1, 3) EGJ x2, 4) distal esophagus x2, 5) duodenum x1) Condition: stable Disposition: PACU
== END 2024-10-09 11:33 | disposition home or self-care (01) ==
PROVIDERS: Visit Provider Surgery
PROC: 0DJ08ZZ Inspection of Upper Intestinal Tract, Via Natural or Artificial Opening Endoscopic (ICD-10-PCS; CPT 43235; principal; 2024-10-09 10:50)
DX: K21.9 Gastro-esophageal reflux disease without esophagitis (principal); E66.01 Morbid (severe) obesity due to excess calories; Z68.41 Body mass index [BMI] 40.0-44.9, adult; K95.89 Other complications of other bariatric procedure; L98.7 Excessive and redundant skin and subcutaneous tissue; Z98.84 Bariatric surgery status; K29.60 Other gastritis without bleeding; K29.80 Duodenitis without bleeding; K44.9 Diaphragmatic hernia without obstruction or gangrene; G43.909 Migraine, unspecified, not intractable, without status migrainosus; F31.9 Bipolar disorder, unspecified; F41.9 Anxiety disorder, unspecified; J45.909 Unspecified asthma, uncomplicated; F43.10 Post-traumatic stress disorder, unspecified; G47.33 Obstructive sleep apnea (adult) (pediatric); Z99.89 Dependence on other enabling machines and devices; Z79.51 Long term (current) use of inhaled steroids; Z79.899 Other long term (current) drug therapy; Z88.8 Allergy status to other drugs, medicaments and biological substances; Z91.040 Latex allergy status; Z90.49 Acquired absence of other specified parts of digestive tract; F17.210 Nicotine dependence, cigarettes, uncomplicated
CPT/HCPCS: 43239; 88305; 88313; 88342; J2003; J2704

== ENCOUNTER → 2024-10-09 08:56 | Outpatient (BNV) | payer OTHER, SELFPAY | PROVIDERS: Visit Provider Surgery | DX: K29.70 Gastritis, unspecified, without bleeding (principal); K29.80 Duodenitis without bleeding; K95.89 Other complications of other bariatric procedure | CPT/HCPCS: 43239 ==

== ENCOUNTER 2024-10-24 08:23 | Outpatient (REF) | payer OTHER, SELFPAY ==
--- NOTE | ~2024-10-24 | XR_ITS ---
EXAMINATION: XR CHEST CLINICAL INFORMATION: E66.01 - Morbid (severe) obesity due to excess calories COMPARISON: None available. TECHNIQUE: 2 views of the chest were obtained. FINDINGS: The cardiac, hilar, and mediastinal contours are normal. The lungs are clear bilaterally. There is no pneumothorax or pleural effusion. There is no focal osseous or soft tissue abnormality. XR/XR chest 2V IMPRESSION: Normal chest. Electronically signed by: Vic Alford MD 10/24/2024 09:08 AM EDT
--- NOTE | 2024-10-24 08:29 | ECG_ITS ---
Test Reason : mor obesity Blood Pressure : */* mmHG Vent. Rate : 66 BPM Atrial Rate : 66 BPM P-R Int : 142 ms QRS Dur : 84 ms QT Int : 388 ms P-R-T Axes : 37 43 19 degrees QTcB Int : 406 ms Normal sinus rhythm Normal ECG No previous ECGs available Referred By: Santy uSn Electronically Signed By: ROYCE CALL MD
[2024-10-24 08:48] LABS: MANUAL DIFF FLAG NO
[2024-10-24 09:04] LABS: Basophils Absolute Auto 0.1 X10*3/uL (0.0-0.2); Basophils Percent Auto 1.4 % (0-2); Eosinophils Absolute Auto 0.1 X10*3/uL (0.0-0.4); Eosinophils Percent Auto 1.7 % (0-4); Hematocrit 37.9 % (37.0-47.0); Hemoglobin 11.7 g/dl (12.0-16.0); Imm Gran Abs Auto 0.03 X10*3/uL (0.00-0.03); Imm Gran Pct Auto 0.5 % (0.0-0.4); Lymphocytes Absolute Auto 1.7 X10*3/uL (1.2-4.9); Lymphocytes Percent Auto 25.9 % (20-40); Mean Corpuscular HGB Conc 30.9 g/dl (31.0-35.0); Mean Corpuscular Hemoglobin 21.9 pg (27.0-33.0); Mean Corpuscular Volume 70.8 fL (80.0-98.0); Monocytes Absolute Auto 0.5 X10*3/uL (0.1-1.2); Monocytes Percent Auto 7.6 % (2-11); Neutrophils Absolute Auto 4.2 x10*3/uL (2.0-8.3); Neutrophils Percent Auto 62.9 % (45-73); Platelet Count 296 X10*3/uL (160-400); Red Blood Count 5.35 X10*6/uL (4.20-5.50); Red Cell Distribution Width 16.5 % (11.0-16.0); White Blood Count 6.6 X10*3/uL (4.8-10.8)
[2024-10-24 09:11] LABS: Estimated Average Glucose 108 mg/dL; Hemoglobin A1c % 5.4 % (<6.0)
[2024-10-24 09:37] LABS: Alanine Aminotransferase 21 U/L (0-31); Albumin Level 4.4 g/dL (3.5-5.0); Alkaline Phosphatase 60 U/L (39-117); Anion Gap 11 (12-20); Aspartate Amino Transferase 17 U/L (5-31); Bilirubin Total 0.4 mg/dL (0.0-1.0); Blood Urea Nitrogen 10 mg/dL (9-16); C Reactive Protein < 0.10 mg/dL (< or = 0.50); Calcium 9.6 mg/dL (8.4-10.2); Carbon Dioxide 25 mmol/L (22-29); Chloride 110 mmol/L (96-108); Cholesterol 171 mg/dL (<200); Estimated Glomerular Filt Rate > 60; Glucose Random 84 mg/dL (60-115); HDL Cholesterol 40 mg/dL (>40); Iron 54 mcg/dL (30-160); LDL Cholesterol Calculated 105 mg/dL (<100); Percent Iron Saturation 13 % (15-50); Potassium 3.9 mmol/L (3.3-5.1); Sodium 142 mmol/L (135-145); Total Iron Binding Capacity 432 mcg/dL (228-428); Total Protein 7.2 g/dL (6.5-8.0); Triglycerides 131 mg/dL (<150); Unsaturated Iron Binding 378 ug/dL
[2024-10-24 10:02] LABS: Folate 10.9 ng/mL (> or = 4.0); Vitamin B12 306 pg/mL (200-900)
[2024-10-24 10:15] LABS: Ferritin 7 ng/mL (10-122); TSH reflex Free T4 1.01 uIU/mL (0.32-4.0); Vitamin D 25-OH Total 24.8 ng/mL (>30)
[2024-10-24 10:27] LABS: Insulin 18 uU/mL (2-29)
[2024-10-27 20:23] LABS: Zinc 90 mcg/dL (60-130)
[2024-10-28 15:32] LABS: Vitamin B1 9 nmol/L (8-30)
[2024-10-28 16:03] LABS: Vitamin A 35 mcg/dL (38-98)
== END 2024-10-24 08:24 | disposition home or self-care (01) ==
LOC: HO.XRAY 08:23
PROVIDERS: Visit Provider Surgery
DX: E66.01 Morbid (severe) obesity due to excess calories (principal); K21.9 Gastro-esophageal reflux disease without esophagitis
CPT/HCPCS: 36415; 71046; 80053; 80061; 82306; 82607; 82728; 82746; 83036; 83525; 83540; 84425; 84443; 84590; 84630; 85025; 86140; 93005

== ENCOUNTER → 2024-10-24 08:29 | Outpatient (BNV) | payer OTHER, SELFPAY | PROVIDERS: Visit Provider Internal Medicine Cardiovascular Disease | DX: E66.01 Morbid (severe) obesity due to excess calories (principal) | CPT/HCPCS: 93010 ==

== ENCOUNTER → 2024-10-24 08:54 | Outpatient (BNV) | payer OTHER, SELFPAY | PROVIDERS: Visit Provider Radiology Diagnostic Radiology | DX: E66.01 Morbid (severe) obesity due to excess calories (principal) | CPT/HCPCS: 71046 ==

== ENCOUNTER 2024-11-04 13:13 | Outpatient (AMB) | payer OTHER, SELFPAY ==
--- NOTE | 2024-11-04 13:05 | A.OFFWM_ITS ---
Intake Intake Visit Reasons: TV BH Intake Allergies ziprasidone [From Geodon] Allergy (Mild, Verified 09/23/24 12:00) Hives lactose Allergy (Verified 10/07/24 12:23) Gastrointestinal Upset latex Allergy (Mild, Uncoded 09/23/24 12:00) Hives [facility] Medical History History of irregular heartbeat Fibromyalgia History of panic attacks RLS (restless legs syndrome) Lactose intolerance IBS (irritable bowel syndrome) Hx of meningioma of the brain SANJAY (obstructive sleep apnea) Fatty liver PONV (postoperative nausea and vomiting) Hx of renal calculi Migraines Stress incontinence Bipolar 1 disorder PTSD (post-traumatic stress disorder) Anxiety Depression GERD (gastroesophageal reflux disease) Obstructive sleep apnea on CPAP Asthma Morbid obesity Surgical History History of loop electrical excision procedure (LEEP) Hx of tubal ligation Hx of colonoscopy History of esophagogastroduodenoscopy (EGD) Hx of carpal tunnel repair History of emergency section Hx of cholecystectomy S/P gastric sleeve procedure Family History Mother Lupus (systemic lupus erythematosus) Diabetes Father No problems noted. Daughter No problems noted. Daughter No problems noted. Daughter No problems noted. 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 She reports being referred by her primary care physician. She had gastric sleeve procedure in January 2021 at [facility] but a few months post-surgery, she began experiencing heartburn, stomach pain, vomiting, and bloating. Despite multiple medical consultations and various medications, these issues remain unresolved. The patient initially lost about 100 lbs following the surgery but has since regained 50 lbs. She acknowledges returning to old eating habits, including skipping meals, consuming large amounts of coffee, and frequent snacking. The patient is seeking a program that can support her in making lifestyle changes and addressing her stomach issues, with the goal of achieving weight loss and symptom resolution. Presenting Concerns Referral Source WMP-Provider, PT had initial harleen with Dr Obrien on 09/23/2024 Reason for referral Completion of behavioral health assessment as part of process for weight-loss surgery. Precipitating Event Obesity, and other medical issues after having weight-loss surgery in 2020. Living Situation Current Living Situation Rent At risk of losing current housing? No Satisfied with current living situation? Yes Comments Pt lives with her 3 children and her spouse. Food/Weight/Diet Expectations of change PT started the program on 09/23/2024 at 251Lbs, and reported a recent weight 250Lbs on 11/04/2024. PT would like to around 170Lbs. PT is implementing the following: Current meal plan: combination of shakes, bars and 1 meal 6F/6F at day (not following it as advised). Exercise plan: treadmill for 300 kolby x day. scale: Yes. Communication with Provider: on Tuesdays. History/Relationship with food PT reports she eats because she has to, because when eats she gets sick and if doesn't then gets weak. 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 Example of meals before starting the program: Breakfast: Skip. Coffee only. Lunch: Skip or might have a snack like a piece of bread. Dinner: Rice, beans, meat/chicken. Snacks: fruit, crackers and cheese Drinks/Liquids: Coffee: 1 big in the morning w/ with milk and caramel from [employer]. Juice: 2 - Green tea juices. Soda: none. Water: 2-3 bottles at day w/ Crystal light. Alcohol: None. History/Relationship with weight PT reports she has always been overweight. Obesity runs in her family, most of her family is overweight or obese. In the last 10 years, the patient's Lowest weight was 250Lbs. and highest 347Lbs History/Relationship with dieting GLS in 2020. Social History Family history and relationship PT lives with her partner, they have 3 children together and have been together for 17 years. They are 9 and 7 y/o twins. PT reports she doesn't have the best relationship with partner at this time. 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 Developmental history and status She had an IEP during school due to learning disability. Disabled years ago due to MH conditions. Social support Mother, sister. 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 Food [place] Service Service? No Questionnaires PHQ-9 Over the last 2 weeks, how often have you been bothered by any of the following problems? 1. Little interest or pleasure in doing things: several days 2. Feeling down, depressed, or hopeless: several days 3. Trouble falling or staying asleep, or sleeping too much: several days 4. Feeling tired or having little energy: more than half the days 5. Poor appetite or overeating: more than half the days 6. Feeling bad about yourself - or that you are a failure or have let yourself or your family down: more than half the days 7. Trouble concentrating on things, such as reading the newspaper or watching television: more than half the days 8. Moving or speaking so slowly that other people could have noticed. Or the opposite - being so fidgety or restless that you have been moving around a lot more than usual: nearly every day 9. Thoughts that you would be better off or of hurting yourself in some way: not at all Total score: 14 Depression Screening Interpretation: Positive (From New PT pack completed on 09/11/2024) Depression Screening Follow-up: Existing condition and In treatment Depression Screening Done: Yes Source: Developed by Drs. Marek Ortega, Joycelyn Thompson, Luciano Pugh and colleagues, with an educational katty from [employer]. Binge Eating Scale Group 1 A. I don't feel self-conscious about my wt. or body size when I'm with others. B. I feel concerned about how I look to others, but it normally does not make me fell disappointed with myself C. I do get self-conscious about my appearance and wt. which makes me feel disappointed in myself. D. I feel very self-conscious about my wt. and frequently I feel intense shame and disgust for myself. I try to avoid social contacts because of my self- consciousness. Response Group 1: B Group 2 A. I don't have any difficulty eating slowly in the proper manner. B. Although I seem to gobble down foods, I don't end up feeling stuffed because of eating to much. C. At times, I tend to eat quickly and then, I feel uncomfortably full afterwards. D. I have the habit of bolting down my food, without really chewing it. When this happens I usually feel uncomfortably stuffed because I've eaten to much. Response Group 2: B Group 3 A. I feel capable to control my eating urges when I want to. B. I feel like I have failed to control my eating more than the average person. C. I feel utterly helpless when it comes to feeling in control of my eating urges. D. Because I feel so helpless about controlling my eating I have become very desperate about trying to get control. Response Group 3: A Group 4 A. I don't have the habit of eating when I'm bored. B. I sometimes eat when I'm bored, but often I'm able to get busy and get my mind off food. C. I have a regular habit of eating when I'm bored, but occasionally, I can use some other activity to get my mind off eating. D. I have a strong habit of eating when I'm bored. Nothing seems to help me breath the habit. Response Group 4: B Group 5 A. I'm usually physically hungry when I eat something. B. Occasionally, I eat something on impulse even though I really am not hungry. C. I have the regular habit of eating foods, that I might not really enjoy, to satisfy a hungry feeling even though physically, I don't need the food. D. Although I'm not physically hungry, I get a hungry feeling in my mouth that only seems to be satisfied when I eat a food, like sandwich, that fills my mouth. Sometimes, when I eat the food to satisfy my mouth hunger, I then spit the food out so I won't gain weight. Response Group 5: A Group 6 A. I don't feel any guilt or self-hate after I overeat. B. After I overeat, occasionally I feel guilt or self-hate. C. Almost all the time I experience strong guilt or self-hate after I overeat. Response Group 6: A Group 7 A. I don't lose total control of my eating when dieting even after periods when I overeat. B. Sometimes when I eat a forbidden food on a diet, I feel like I blew it and eat even more. C. Frequently, I have the habit of saying to myself, I've blown it now, why not go all the way, when I overeat on a diet. When that happens I eat more. D. I have a regular habit of starting a strict diets for myself but I break the diets by going on an eating binge. My life seems to be either a feast or famine. Response Group 7: A Group 8 A. I rarely eat so much food that I feel uncomfortably stuffed afterwards. B. Usually about once a month, I each such a quantity of food, I end up feeling very stuffed. C. I have regular periods during the month when I eat large amounts of food, either at mealtime or at snacks. D. I eat so much food that I regularly feel quite uncomfortable after eating and sometimes a bit nauseous. Response Group 8: A Group 9 A. My level of calorie intake does not go up very high or go down very low on a regular basis. B. Sometimes after I overeat, I will try to reduce my caloric intake to almost nothing to compensate for the excess calories I've eaten. C. I have a regular habit of overeating during the night. It seems that my routine is not to be hungry in the morning but overeat in the evening. D. In my adult years, I have had week-long periods where I practically starve myself. This follows periods when I overeat. It seems I live a life of either feast or famine. Response Group 9: A Group 10 A. I usually am able to stop eating when I want to. I know when enough is enough. B. Every so often, I experience a compulsion to eat which I can't seem to control. C. Frequently, I experience strong urges to eat which I seem unable to control, but at other times I can control my eating urges. D. I feel incapable of controlling urges to eat. I have a fear of not being able to stop eating voluntarily. Response Group 10: A Group 11 A. I don't have any problem stopping eating when I feel full. B. I usually can stop eating when I feel full but occasionally overeat leaving me feeling uncomfortably stuffed. C. I have a problem stopping eating once I start and usually I feel uncomfortably stuffed after I eat a meal. D. Because I have a problem not being able to stop eating when I want, I sometimes have to induce vomiting to relieve my stuffed feeling. Response Group 11: A Group 12 A. I seem to eat just as much when I'm with others, Family social gatherings as when I'm by myself. B. Sometimes, when I'm with other persons, I don't eat as much as I want to eat because I'm self-conscious about my eating. C. Frequently, I eat only a small amount of food when others are present, because I'm very embarrassed about my eating. D. I feel so ashamed about overeating that I pick times to overeat when I know no one will see me. I feel like a closet eater. Response Group 12: A Group 13 A. I eat three meals a day with only an occasional between meal snack. B. I eat 3 meals a day, but I also normally snack between meals. C. When I am snacking heavily, I get in the habit of skipping regular meals. D. There are regular periods when I seem to be continually eating, with no planned meals. Response Group 13: A Group 14 A. I don't think much about trying to control unwanted eating urges. B. At least some of the time, I feel my thoughts are pre-occupied with trying to control my eating urges. C. I feel that frequently I spend much time thinking about how much I ate or about trying not to eat anymore. D. It seems to me that most of my waking hours are pre-occupied by thoughts about eating or not eating. I feel like I'm constantly struggling not to eat. Response Group 14: A Group 15 A. I don't think about food a great deal. B. I have strong craving for food but they last only for brief periods of time. C. I have days when I can't seem to think about anything else but food. D. Most of my days seem to be pre-occupied with thoughts about food. I feel like I live to eat. Response Group 15: A Group 16 A. I usually know whether or not I'm physically hungry. I take the right portion of food to satisfy me. B. Occasionally, I feel uncertain about knowing whether or not I'm physically hungry. A these times it's hard to know how much food I should take to satisfy me. C. Even though I might know how many calories I should eat, I don't have any idea what is a normal amount of food for me. Response Group 16: A Binge Eating Score: 3 Score less than 17 Minimal Risk Score between 18-26 Moderate Risk Score between 27-46 High Risk Assessment & Plan Assessment & Plan (1) Trauma and stressor-related disorder: Code(s): F43.9 - Reaction to severe stress, unspecified (2) Pre-bariatric surgery psychological evaluation: Code(s): Z71.89 - Other specified counseling Plan The patient has not yet been cleared, as the assessment was not completed today. She will return in 2 weeks to continue the evaluation. Next appointment: 11/19/2024 at 1pm, Telehealth. Telehealth Telehealth Telehealth Platform: [facility] Location of provider rendering services: other Location of patient: address on file Patient Identification confirmed using: Name, : Yes Telehealth method: video Patient verbally consented to treatment: Yes Patient verbally consented to billing insurance company: Yes Patient informed of any privacy concerns related to visit: Yes Minutes spent on Phone/Video with Pt.: 55 Coding Level of Care Code New Pt Tele Psy Diag Giovanna ([id number]) Patient Type New Diagnoses Trauma and stressor-related disorder F43.9 Pre-bariatric surgery psychological evaluation Z71.89 Time Spent (min) 55
== END 2024-11-04 14:10 | disposition home or self-care (01) ==
LOC: HO.HBST 13:13
PROVIDERS: Visit Provider Counselor Mental Health
DX: F43.9 Reaction to severe stress, unspecified (principal); Z71.89 Other specified counseling
CPT/HCPCS: 90791

== ENCOUNTER 2024-11-19 13:14 | Outpatient (AMB) | payer OTHER, SELFPAY ==
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
== END 2024-11-19 14:24 | disposition home or self-care (01) ==
LOC: HO.HBST 13:14
PROVIDERS: Visit Provider Counselor Mental Health
DX: F43.9 Reaction to severe stress, unspecified (principal); Z71.89 Other specified counseling
CPT/HCPCS: 90837

== ENCOUNTER 2024-12-05 09:20 | Outpatient (REF) | payer OTHER, SELFPAY ==
--- NOTE | ~2024-12-05 | US_ITS ---
EXAMINATION: US ABDOMEN COMPLETE WITH LIVER ELASTOGRAPHY HISTORY: E66.01 - Morbid (severe) obesity due to excess calories TECHNIQUE: Real-time grayscale ultrasound imaging of the abdomen was performed and images were reviewed. COMPARISON: There are no prior studies available for comparison. FINDINGS: Liver: The right lobe of the liver measures 14.6 cm in size. The left lobe of the liver measures 12.7 cm in size. The liver demonstrates normal homogeneous echotexture. No focal mass or intrahepatic biliary ductal dilatation is identified. There is normal hepatopedal flow in the portal vein. Ultrasound elastography of the liver was performed with 10 separate measurements of the liver parenchyma with the patient in the supine position. Measurements were obtained approximately 2 cm below Huy's capsule and perpendicular to the capsule. The median shear wave velocity is 1.69 m/s. The interquartile range/median (IQR/median) is 0.06. Gallbladder and biliary tree: The gallbladder is surgically absent. The common bile duct is normal in caliber measuring 5 mm. Kidneys: The right kidney measures 12.6 cm in length. The left kidney measures 13.1 cm in length. The kidneys are unremarkable, without evidence of masses, hydronephrosis, or calculi. Pancreas: The pancreatic head, neck, and body are unremarkable. The pancreatic tail is obscured by bowel gas. Spleen: The spleen is normal in size and contour, measuring 11.1 cm in length. Abdominal aorta and inferior vena cava: The visualized portions of the abdominal aorta and inferior vena cava are normal in caliber. There is no free fluid in the abdomen. US/US abdomen comp w elastography IMPRESSION: Unremarkable abdominal ultrasound. The median shear wave velocity in the liver is 1.69 m/s, corresponding to a median liver stiffness of 8.88 kPa. The IQR/median value is 0.06. This is indicative of a quality data set. Findings are indicative of a low elastography value which rules out advanced chronic liver disease in asymptomatic patients. REFERENCE: Society of Radiologists in Ultrasound Liver Stiffness Thresholds (2020): LIVER STIFFNESS THRESHOLDS: *Shear wave velocity less than 1.3 m/s (Liver Stiffness equal or less than 5 kPa): High probability of being normal. *Shear wave velocity less than 1.7 m/s (Liver Stiffness less than 9 kPa): In the absence of other known clinical signs, rules out compensated advanced chronic liver disease. *Shear wave velocity between 1.7-2.1 m/s (Liver Stiffness 9-13 kPa): Suggestive of compensated advanced chronic liver disease but need further test for confirmation. *Shear wave velocity between 2.1-2.4 m/s (Liver Stiffness 13-17 kPa): Rules in compensated advanced chronic liver disease. *Shear wave velocity greater than 2.4 m/s (Liver Stiffness over 17 kPa): Suggestive of clinically significant portal hypertension. QUALITY OF DATA SET: *IQR/Median value equal or less than 0.15 implies a quality data set. *IQR/Median value over 0.15 implies a poor quality data set. SIGNIFICANT CHANGE FROM PRIOR EXAM: Significant change if liver stiffness measurement is 10% or greater from prior exam. OTHER CONSIDERATIONS: The stage of liver fibrosis may be overestimated in the setting of acute hepatitis, liver inflammation, elevated liver function tests, hepatic vascular congestion, obstructive cholestasis, non-fasting state, and infiltrative diseases such as amyloidosis and lymphoma. In some patients with NAFLD, the liver stiffness thresholds for compensated advanced chronic liver disease may be lower. In causes other than viral hepatitis and NAFLD, liver stiffness thresholds are not well established. Electronically signed by: Marek العلي MD 12/05/2024 09:55 AM EDT
== END 2024-12-05 09:21 | disposition home or self-care (01) ==
LOC: HO.US 09:20
PROVIDERS: Visit Provider Surgery
DX: E66.01 Morbid (severe) obesity due to excess calories (principal); K21.9 Gastro-esophageal reflux disease without esophagitis
CPT/HCPCS: 76700; 76981

== ENCOUNTER → 2024-12-05 09:21 | Outpatient (BNV) | payer OTHER, SELFPAY | PROVIDERS: Visit Provider Radiology Diagnostic Radiology | DX: E66.01 Morbid (severe) obesity due to excess calories (principal); Z90.49 Acquired absence of other specified parts of digestive tract | CPT/HCPCS: 76700; 76981 ==

== ENCOUNTER 2024-12-17 11:06 | Outpatient (AMB) | payer OTHER, SELFPAY ==
--- NOTE | 2024-12-17 11:00 | A.OFFWM_ITS ---
Intake Intake Visit Reasons: TV BH F/U Allergies ziprasidone (From Geodon) Allergy (Mild, Verified 09/23/24 12:00) Hives lactose Allergy (Verified 10/07/24 12:23) Gastrointestinal Upset latex Allergy (Mild, Uncoded 09/23/24 12:00) Hives [facility] Medical History History of irregular heartbeat Fibromyalgia History of panic attacks RLS (restless legs syndrome) Lactose intolerance IBS (irritable bowel syndrome) Hx of meningioma of the brain SANJAY (obstructive sleep apnea) Fatty liver PONV (postoperative nausea and vomiting) Hx of renal calculi Migraines Stress incontinence Bipolar 1 disorder PTSD (post-traumatic stress disorder) Anxiety Depression GERD (gastroesophageal reflux disease) Obstructive sleep apnea on CPAP Asthma Morbid obesity Surgical History History of loop electrical excision procedure (LEEP) Hx of tubal ligation Hx of colonoscopy History of esophagogastroduodenoscopy (EGD) Hx of carpal tunnel repair History of emergency section Hx of cholecystectomy S/P gastric sleeve procedure Family History Mother Lupus (systemic lupus erythematosus) Diabetes Father No problems noted. Daughter No problems noted. Daughter No problems noted. Daughter No problems noted. 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 She notes that during periods of stress, she often feels hectic and rushed, which impacts her ability to stay consistent with healthy routines. Patient is aware that she sometimes eats too quickly, which leads to feeling unwell or bloated, often resulting in skipped meals?contributing to a cycle of unhealthy eating patterns. She also reports that the protein shakes she is using cause constipation. She was advised to consult her physician to explore alternative options. Objective: Patient attended a follow-up visit via Telehealth. Session focused on current functioning and barriers related to weight loss. Psychoeducation was provided regarding weight loss, bariatric surgery, and the importance of sustainable lifestyle changes. The patient discussed the demands of motherhood, and deeper patterns of unhealthy behaviors were explored, including [id number] thinking. Cognitive Behavioral Therapy (CBT) techniques were used, including the cognitive triangle and ABC analysis, to increase insight and support behavior change. A behavioral plan was proposed to help the patient improve adherence to meal and exercise routines. Assessment/Response: * Mental status: Alert and oriented ?3. Mood congruent with content. Thought process logical. * Risk reported/identified: None Food/Weight/Diet Expectations of change PT started the program on 09/23/2024 at 251Lbs, and reported a recent weight 250Lbs on 11/04/2024. Weight as of 11/18/24: 248Lbs. Weight as of 12/16/2024: 247Lbs. . PT would like to around 170Lbs. PT is implementing the following: Current meal plan: combination of shakes, bars and 1 meal 6F/6F at day - Not consistent with it. Exercise plan: treadmill for 300 kolby x day. at least 3 times at week. scale: Yes. Communication with Provider: on Tuesdays. Assessment & Plan Assessment & Plan (1) Trauma and stressor-related disorder: Code(s): F43.9 - Reaction to severe stress, unspecified Plan Follow up in one month to continue supporting behavioral changes and mindset around weight loss. Encourage patient to consult with Dr Villa regarding alternatives to protein shakes causing constipation. * Next appointment is scheduled for 01/21/2025 at 11:00 AM. Telehealth [facility] Location of provider rendering services: other (Home office. [place], [place]) Location of patient: address on file Patient Identification confirmed using: Name, : Yes Telehealth method: voice only Patient verbally consented to treatment: Yes Patient verbally consented to billing insurance company: Yes Patient informed of any privacy concerns related to visit: Yes Minutes spent on Phone/Video with Pt.: 60 Coding Level of Care Code Established Pt Tele Psytx >53 mins (30331) Patient Type Established Diagnoses Trauma and stressor-related disorder F43.9 Time Spent (min) 60
== END 2024-12-17 11:52 | disposition home or self-care (01) ==
LOC: HO.HBST 11:06
PROVIDERS: Visit Provider Counselor Mental Health
DX: F43.9 Reaction to severe stress, unspecified (principal)
CPT/HCPCS: 90837

== ENCOUNTER 2025-02-03 09:26 | Outpatient (REF) | payer OTHER, SELFPAY ==
--- NOTE | ~2025-02-03 | FL_ITS ---
EXAMINATION: XR FLUOROSCOPY UPPER GI WITH AIR CLINICAL INFORMATION: Obesity due to excess calories COMPARISON: None available. TECHNIQUE: Routine upper GI air contrast study was performed in upright and lying position. FINDINGS: Following oral administration of thick barium and effervescent granules there is normal propagation of bolus from the oral cavity through the pharynx, esophagus into stomach. No intraluminal filling defect or extrinsic compression seen. On placing patient supine and prone lying the course, caliber of stomach, duodenal bulb and sweep is normal. Moderate gastroesophageal reflux without hiatal hernia is noted. The mucosal pattern of the stomach, duodenal bulb and the sweep is normal. FLUOROSCOPY TIME: 1 minute 19 seconds DOSE AREA PRODUCT: 2149 uGy-m2 (microgray-meter squared) FL/FL upper GI w air IMPRESSION: Moderate gastroesophageal reflux without hiatal hernia. Electronically signed by: Clint Moss MD 02/03/2025 11:45 AM EDT
== END 2025-02-03 09:27 | disposition home or self-care (01) ==
LOC: HO.XRAY 09:26
PROVIDERS: Visit Provider Surgery
DX: E66.01 Morbid (severe) obesity due to excess calories (principal); K21.9 Gastro-esophageal reflux disease without esophagitis
CPT/HCPCS: 74246

== ENCOUNTER → 2025-02-03 09:27 | Outpatient (BNV) | payer OTHER, SELFPAY | PROVIDERS: Visit Provider Radiology Diagnostic Radiology | DX: K21.9 Gastro-esophageal reflux disease without esophagitis (principal) | CPT/HCPCS: 74246 ==

== ENCOUNTER 2025-02-13 11:38 | Outpatient (AMB) | payer OTHER, SELFPAY ==
--- NOTE | 2025-02-13 11:30 | MHC.WMTHER ---
Intake Intake Visit Reasons: TV BH F/U Allergies ziprasidone (From Geodon) Allergy (Mild, Verified 09/23/24 12:00) Hives lactose Allergy (Verified 10/07/24 12:23) Gastrointestinal Upset latex Allergy (Mild, Uncoded 09/23/24 12:00) Hives [facility] Medical History History of irregular heartbeat Fibromyalgia History of panic attacks RLS (restless legs syndrome) Lactose intolerance IBS (irritable bowel syndrome) Hx of meningioma of the brain SANJAY (obstructive sleep apnea) Fatty liver PONV (postoperative nausea and vomiting) Hx of renal calculi Migraines Stress incontinence Bipolar 1 disorder PTSD (post-traumatic stress disorder) Anxiety Depression GERD (gastroesophageal reflux disease) Obstructive sleep apnea on CPAP Asthma Morbid obesity Surgical History History of loop electrical excision procedure (LEEP) Hx of tubal ligation Hx of colonoscopy History of esophagogastroduodenoscopy (EGD) Hx of carpal tunnel repair History of emergency section Hx of cholecystectomy S/P gastric sleeve procedure Family History Mother Lupus (systemic lupus erythematosus) Diabetes Father No problems noted. Daughter No problems noted. Daughter No problems noted. Daughter No problems noted. Social History Are you a primary family member caretaker to a significant other at home: Yes (children) Do you presently have visiting nurse or other home services: No Alcohol intake: current Alcohol intake frequency: does not drink Patient Tobacco Use Status: Current everyday Tobacco user Tobacco use type: Cigarette Cigarettes Per Day: 3 Behavioral Health Assessment Weight Management Therapy Therapy Notes Details Subjective: Patient reports ongoing struggles with weight gain and acknowledges not adhering to her meal or exercise plan. She stopped communicating with surgeon several weeks ago due to feelings of shame about her weight gain. The patient identifies significant stressors and financial concerns, stating she cannot afford to take time off work, which has impacted her ability to prioritize her health. She has requested weight-loss injections as an alternative. The patient is seeking revision bariatric surgery and expresses frustration with her current progress. Objective: The session focused on assessing current functioning and identifying barriers to effective weight management. We emphasized the importance of consistency for achieving desired outcomes and sustaining long-term success following bariatric surgery. Cognitive-behavioral strategies were utilized to help the patient recognize unhelpful thought patterns and develop problem-solving skills for ongoing challenges, including stress, limited time, and financial constraints. We also reviewed available support options, behavioral interventions, and community resources. The patient was encouraged to discuss her interest in weight-loss medications and potential options with her surgeon. Assessment/Response: Mental status: Alert and oriented, mood congruent, thought process logical and goal-directed, no evidence of psychosis or cognitive impairment. Risk reported/identified: None Food/Weight/Diet Expectations of change PT started the program on 09/23/2024 at 251Lbs, and reported a recent weight 250Lbs on 11/04/2024. Weight as of 11/18/24: 248Lbs. Weight as of 12/16/2024: 247Lbs. Weight as of 02/13/2025: 250Lbs . PT would like to around 170Lbs. PT is implementing the following: Current meal plan: combination of shakes, bars and 1 meal 6F/6F at day - Not consistent with it. Exercise plan: treadmill for 300 kolby x day. at least 3 times at week. scale: Yes. Communication with Provider: on Tuesdays. Assessment & Plan Assessment & Plan (1) Trauma and stressor-related disorder: Code(s): F43.9 - Reaction to severe stress, unspecified Plan Patient remains cleared from a mental health perspective, as no major mental health concerns have been identified. However, she is encouraged to strengthen her commitment to the program and address ongoing social challenges that are impacting her consistency and engagement. She will contact the office if she wishes to continue in the program and receive additional behavioral health support. If the patient moves forward with surgery, she will be scheduled for a behavioral health follow-up at 1?4 weeks postoperatively. Next appointment: To be determined. Telehealth [facility]health [facility] Location of provider rendering services: practice address Location of patient: address on file Patient Identification confirmed using: Name, : Yes Telehealth method: voice only Patient verbally consented to treatment: Yes Patient verbally consented to billing insurance company: Yes Patient informed of any privacy concerns related to visit: Yes Minutes spent on Phone/Video with Pt.: 45 [place] [address] Tele Psytx 45 mins Patient Type Established Diagnoses Trauma and stressor-related disorder F43.9 Time Spent (min) 45
== END 2025-02-13 13:12 | disposition home or self-care (01) ==
LOC: HO.HBST 11:38
PROVIDERS: PCP Internal Medicine Infectious Disease; Visit Provider Counselor Mental Health
DX: F43.9 Reaction to severe stress, unspecified (principal)
CPT/HCPCS: 90834